=== PATIENT | female | born 1970 | race Caucasian/White ===

== ENCOUNTER 2017-03-15 02:53 | Emergency (ER) | payer BC ==
[~2017-03-15] VITALS: Ht 157.5 cm; Wt 81.5 kg
[~2017-03-15 02:53] MED LIST: ALB0.5V IH; ALBU2.5V4 IH; ALBU8CC IH; AZIT250T5 PO; AZIT250T81 PO; CITA20TA12 PO; ESCI10TA49 PO; ESTR0.62 PO; FLUT1DIS4 IH; HYDR-3702 PO; INHA1INH59 MC; IPRA12.92 IH; LEVO300T2 PO; MOME13HF IH; NF-TORA10 PO; OMEP20CA6 PO; ONDAN4ODT PO; PHEN15CA67 PO; PRCD5U PO; PRED20TA PO; PRM25T PO; [UNRECOGNIZED DRUG - CODE] IV
--- OUTSIDE RECORDS SUMMARY | 2017-03-15 02:58 | XMS REPORT ---
Author Author GENERATED, SYSTEM Organization Unknown Address Unknown Phone Unavailable Care Team Providers Care National Sales Associate Name Role Phone MD HANNAH BRIAN PP [phone] Reason For Visit Chief Complaint SOB, FEVER Social History Functional Status Vital Signs Results Chemistry from 04/17/2016 1:08 AMSODIUM 139 MMOL/L (136-145 MMOL/L) POTASSIUM 3.5 MMOL/L (3.5-5.1 MMOL/L) CHLORIDE 101 MMOL/L (98-107 MMOL/L) TCO2 31.6 MMOL/L (21.0-32.0 MMOL/L) *ANION GAP 6.4 MMOL/L L (8.0-16.0 MMOL/L) BUN 9 MG/DL (7-18 MG/DL) CREATININE 1.04 MG/DL H (0.55-1.02 MG/DL) *BUN/CREATININE RATIO 8.7 L (9.1-17.0 ) GLUCOSE 103 MG/DL H (65-99 MG/DL) *GFR EST NON AFR ECUADOREAN 66 ML/MIN *GFRA EST AFR AMER 76 ML/MIN CALCIUM 8.9 MG/DL (8.5-10.1 MG/DL) BILIRUBIN TOTAL 0.40 MG/DL (0.20-1.00 MG/DL) TOTAL PROTEIN 7.7 GM/DL (6.4-8.2 GM/DL) ALBUMIN 3.8 GM/DL (3.4-5.0 GM/DL) *GLOBULIN 3.9 GM/DL H (2.3-3.5 GM/DL) *A/G RATIO 1.0 MG/DL L (1.5-2.2 MG/DL) ALK PHOS 89 U/L (46-116 U/L) ALT (SGPT) 36 U/L (16-63 U/L) AST (SGOT) 17 U/L (15-37 U/L)Hematology from 04/17/2016 1:08 AMWBC 13.1 X10e3/UL H (3.6-11.2 X10e3/UL) RBC 4.99 X10e6/UL H (3.63-4.92 X10e6/UL) HEMOGLOBIN 15.9 G/DL H (11.0-14.3 G/DL) HEMATOCRIT 47.7 % H (31.2-41.9 %) *MCV 95.7 FL (79.0-98.0 FL) *MCH 32.0 PG (27.0-33.0 PG) *MCHC 33.4 G/DL (32.0-36.0 G/DL) *RDW 12.8 % (12.3-17.0 %) *RDWSD 43.3 (37.1-47.8 ) PLATELET 184 X10e3/UL (159-386 X10e3/UL) *MPV 9.0 FL (7.4-10.4 FL) AUTOMATED DIFF PERFORMED SEGS 67.3 % *LYMPHOCYTES 23.7 % *MONOCYTES 5.6 % *EOSINOPHILS 2.6 % *BASOPHILS 0.8 % *ABSOLUTE NEUTROPHILS 8.80 X10e3/UL H (1.80-7.80 X10e3/UL) *ABSOLUTE LYMPHOCYTES 3.10 X10e3/UL H (1.00-3.00 X10e3/UL) *ABSOLUTE MONOCYTES 0.70 X10e3/UL (0.30-1.00 X10e3/UL) *ABSOLUTE EOSINOPHILS 0.30 X10e3/UL (0.00-0.50 X10e3/UL) *ABSOLUTE BASOPHILS 0.10 X10e3/UL (0.00-0.20 X10e3/UL)DX Radiology from 2015 1:12 AMCHEST 2 VIEWS History: wheezing. Technique: 2 VIEW CHEST Priors: 04/12/2015 Findings: No acute infiltrate, pneumothorax or pleural effusions are identified. The heart size is normal. Impression: No evidence of acute cardiopulmonary process. Electronically signed by: James Torre MD Dictated: 04/17/2016 08:59 Problems Encounter Diagnosis No relevant problems exist. Additional Problems Chronic Bronchitis Comment:Problem resolved by [facility] Workflow upon Discharge, Status:Resolved. Chronic Obstructive Lung Disease Comment:Problem resolved by [facility] Workflow upon Discharge, Status:Resolved. Pneumonia Comment:Problem resolved by [facility] Workflow upon Discharge, Status:Resolved. Pneumonia Comment: Problem resolved by [facility] Workflow upon Discharge, Status:Resolved. Encounters Encounter Diagnosis No relevant problems exist. Plan of Care Procedures Completed Procedure Code: [id number] Procedure Name: not valued, on 10/06/2015 12: 00 AM Immunizations pneumococcal (MERCK,SHARP,MARY JO, Lot # [id number]); Administered 10/08/2015 2:15 PM ; 1 DOSE=0.5 ML, INTRAMUSCL Hospital Course Hospital Discharge Instructions Allergies, Adverse Reactions, Alerts Latex Allergy has not been assessed.IV Contrast Allergy has not been assessed.No Known Drug Allergies. Medication Medication reconciliation has not been performed.
--- OUTSIDE RECORDS SUMMARY | 2017-03-15 03:00 | XMS REPORT ---
Author Author GENERATED, SYSTEM Organization Unknown Address Unknown Phone Unavailable Care Team Providers Care Air Press Operator Name Role Phone MD HANNAH BRIAN PP [phone] Reason For Visit Chief Complaint SOB, FEVER [...] H (65-99 MG/DL) *GFR EST NON AFR RUSSIAN 66 ML/MIN *GFRA EST AFR AMER 76 [...] Plan of Care Procedures Completed Procedure Code: [id number] Procedure Name: not valued, on 10/06/2015 12: 00 AM Immunizations pneumococcal (MERCK,SHARP,MARY JO, Lot # [id number]); Administered 10/08/2015 2:15 PM ; 1 DOSE=0.5 ML, INTRAMUSCL Hospital Course Hospital Discharge Instructions Allergies, Adverse Reactions, Alerts Latex Allergy has not been assessed.IV Contrast Allergy has not been assessed.No Known Drug Allergies. Medication Medication reconciliation has not been performed.
[2017-03-15] MEDS ORDERED: methylPREDNISolone 125 MG (Solu-MEDROL) VIAL IM ONE (03:25)
[2017-03-15 03:52] LABS: BASOPHILS % (AUTO) 1 % (0-2); EOSINOPHILS # (AUTO) 0.2 10^3uL; EOSINOPHILS % (AUTO) 3 % (0-4); LYMPHOCYTES # (AUTO) 2.9 X10^3; MEAN CORPUSCULAR HGB CONC 34.7 g/dL (31.0-37.0); MEAN CORPUSCULAR VOLUME 94 FL (80-100); MEAN PLATELET VOLUME 11.1 FL (6.0-9.5); MONOCYTES # (AUTO) 0.6 X10^3; MONOCYTES % (AUTO) 9 % (3-11); NEUTROPHILS # (AUTO) 3.7 X10^3; NEUTROPHILS % (AUTO) 49 % (51-67); PLATELET COUNT 135 10^3uL (150-450); WHITE BLOOD COUNT 7.55 10^3uL (4.0-11.0)
[2017-03-15 04:00] LABS: ALBUMIN 4.2 g/dL (3.4-5.0); ANION GAP 13.4 MEQ/L (3-15); CALCULATED IONIZED CALCIUM 3.8 mg/dL (3.8-4.6); TOTAL PROTEIN 7.3 g/dL (6.4-8.5)
[2017-03-15 04:04] LABS: MEAN CORPUSCULAR HEMOGLOBIN 32.6 PG (26.0-34.0)
[2017-03-15 04:25] LABS: ERYTHROCYTE SEDIMENTATION RT* 10 mm/hr (0-21)
[2017-03-15] MEDS ORDERED: ONDANSETRON 4 MG (ZOFRAN) ORAL DISSOLVE TAB PO ONE (04:45)
--- NOTE | 2017-03-15 04:53 | NUR ---
Pt states that her face still feels swollen, noted that the swelling does not appear to be down any, resp are easy and non labored at this time, pt watches t.v
[2017-03-15] MEDS ORDERED: PRED20TA PO (05:17)
[2017-03-15 05:44] VITALS: BP 133/79
== END 2017-03-15 05:45 | disposition home or self-care (01) ==
LOC: ED 02:56
DX: T78.3XXA Angioneurotic edema, initial encounter (principal); R23.8 Other skin changes; T78.40XA Allergy, unspecified, initial encounter
CPT/HCPCS: 36415; 80053; 84443; 85025; 85652; 86140; 96372; 99283; J2930; 99282